=== PATIENT | male | born 1965 | race Caucasian/White ===

== ENCOUNTER → 2017-11-16 | Outpatient (CLI) | payer OTHER | LOC: BMCIMAGING 09:59 | PROVIDERS: ATTEND Family Medicine | DX: R04.2 Hemoptysis (principal); J44.9 Chronic obstructive pulmonary disease, unspecified ==

== ENCOUNTER → 2018-11-28 | Outpatient (CLI) | payer OTHER | LOC: BMCIMAGING 15:22 | PROVIDERS: ATTEND Specialist | DX: J40 Bronchitis, not specified as acute or chronic (principal) ==